=== PATIENT | female | born 1990 | race Caucasian/White ===

== ENCOUNTER 2017-07-21 14:47 | Emergency (ER) | payer OTHER ==
[~2017-07-21] VITALS: Ht 170.2 cm; Wt 102.7 kg
[~2017-07-21 14:47] MED LIST: BENADRYL50 MG PO; EPIPEN ADU0.3 MG/0.3 IM; KEFLEX500 MG PO; MACROBID100 MG PO; MECLIZINE HCL25 MG PO; MOTRIN800 MG PO; NOHOMEMEDS; ULTRAM50 MG PO
[2017-07-21 15:33] LABS: HEMATOCRIT 47.9 % (36.0-46.0); HEMOGLOBIN 16.8 G/DL (11.9-15.5); MCH 30.9 PG (29.0-34.0); MCHC 35.1 G/DL (30.0-36.0); MCV 88.1 FL (83-99); PLATELET COUNT 166 K/uL (156-360); RBC DIS.WIDTH-CV 12.1 % (11.8-14.6); RBC DIS.WIDTH-SD 38.8 % (39-53); RED BLOOD COUNT 5.44 M/uL (3.80-5.20)
[2017-07-21 15:50] LABS: CHLORIDE 108 MEQ/L (99-109); SODIUM 140 MEQ/L (136-147)
[2017-07-21 15:55] LABS: CREATININE 0.8 MG/DL (0.6-1.3); GFR ESTIMATE (CALCULATED) > 59 mL/min/; GLUCOSE 100 mg/dL (70-99); UREA NITROGEN (BUN) 9 mg/dL (9-23)
[2017-07-21] MEDS ORDERED: VENTOLIN HFA18 GM IH (20:21)
[2017-07-21 20:38] VITALS: BP 123/69
== END 2017-07-21 20:39 | disposition home or self-care (01) ==
LOC: EME 14:47
DX: J20.9 Acute bronchitis, unspecified (principal); F41.9 Anxiety disorder, unspecified; Z90.49 Acquired absence of other specified parts of digestive tract; F17.200 Nicotine dependence, unspecified, uncomplicated
CPT/HCPCS: 71046; 80048; 85027; 94640; 99281; 99283

== ENCOUNTER 2017-11-25 16:42 | Emergency (ER) | payer OTHER ==
[~2017-11-25] VITALS: Ht 170.2 cm; Wt 106.8 kg
[~2017-11-25 16:42] MED LIST changes: +VENTOLIN HFA18 GM IH
[2017-11-25 16:50] VITALS: BP 118/87
[2017-11-25 17:29] LABS: HEMATOCRIT 41.8 % (36.0-46.0); HEMOGLOBIN 14.9 G/DL (11.9-15.5); MCH 30.1 PG (29.0-34.0); MCHC 35.6 G/DL (30.0-36.0); MCV 84.4 FL (83-99); PLATELET COUNT 311 K/uL (156-360); RBC DIS.WIDTH-CV 12.8 % (11.8-14.6); RBC DIS.WIDTH-SD 39.3 % (39-53); RED BLOOD COUNT 4.95 M/uL (3.80-5.20)
[2017-11-25 17:37] LABS: CHLORIDE 106 mEq/L (99-109); POTASSIUM 4.3 mEq/L (3.7-5.4); SODIUM 139 mEq/L (136-147)
[2017-11-25 17:39] LABS: GLUCOSE 89 mg/dL (70-99)
[2017-11-25 17:43] LABS: CREATININE 0.8 mg/dL (0.6-1.3); GFR ESTIMATE (CALCULATED) > 59 mL/min/; UREA NITROGEN (BUN) 7 mg/dL (9-23)
[2017-11-25 17:45] LABS: APPEARANCE SL.HAZY ((CLEAR)); BILIRUBIN NEGATIVE; BLOOD NEGATIVE; COLOR AMBER ((YELLOW)); GLUCOSE (STRIP) NEGATIVE; KETONES NEGATIVE; LEUKOCYTES NEGATIVE; NITRITE NEGATIVE; PROTEIN (STRIP) NEGATIVE; SPECIFIC GRAVITY 1.028 (1.000-1.030); UROBILINOGEN 0.2 MG/DL (0.2-1.0)
[2017-11-25 17:50] LABS: BACTERIA RARE /HPF; EPITHELIAL CELLS 2+ /HPF; MUCUS TRACE /LPF; RED BLOOD CELLS 0-5 /HPF (0-5); UCUL ADDED? NO; WHITE BLOOD CELLS 0-5 /HPF (0-5)
[2017-11-25 17:52] LABS: QUANTITATIVE HCG 14195.1 MIU/ML
== END 2017-11-25 19:48 | disposition left against medical advice (07) ==
LOC: EME 16:42
PROVIDERS: Physician Assistant
DX: O20.0 Threatened abortion (principal); R10.32 Left lower quadrant pain; D72.829 Elevated white blood cell count, unspecified; Z3A.01 Less than 8 weeks gestation of pregnancy; Z90.49 Acquired absence of other specified parts of digestive tract; Z87.891 Personal history of nicotine dependence; Z53.20 Procedure and treatment not carried out because of patient's decision for unspecified reasons
CPT/HCPCS: 76801; 80048; 81003; 84702; 85027

== ENCOUNTER 2018-01-27 22:57 | Emergency (ER) | payer OTHER ==
[~2018-01-27] VITALS: Ht 170.2 cm; Wt 112.9 kg
[2018-01-28 01:01] VITALS: BP 119/82
== END 2018-01-28 01:02 | disposition home or self-care (01) ==
LOC: EME 22:57
DX: O26.892 Other specified pregnancy related conditions, second trimester (principal); R51 Headache; Z3A.15 15 weeks gestation of pregnancy; O99.342 Other mental disorders complicating pregnancy, second trimester; F41.9 Anxiety disorder, unspecified; Z87.891 Personal history of nicotine dependence; Z90.49 Acquired absence of other specified parts of digestive tract
CPT/HCPCS: 99281; 99284; J1200; J2765; J7030